=== PATIENT | female | born 1990 | race Caucasian/White ===

== ENCOUNTER 2021-12-15 22:18 | Emergency (ER) | payer MEDICAID ==
[~2021-12-15] VITALS: Ht 157.5 cm; Wt 59.0 kg
[2021-12-15] MEDS ORDERED: LORAZEPAM 1MG TABLET PO ONE (22:45)
[2021-12-15 23:25] VITALS: BP 121/69
[2021-12-15] MEDS ORDERED: LORA-249 MT (23:27)
== END 2021-12-15 23:30 | disposition home or self-care (01) ==
LOC: ER 22:18
DX: F41.9 Anxiety disorder, unspecified (principal); F32.A Depression, unspecified; G47.00 Insomnia, unspecified; J45.909 Unspecified asthma, uncomplicated
CPT/HCPCS: 99283

== ENCOUNTER 2022-02-20 21:25 | Emergency (ER) | payer MEDICAID ==
[~2022-02-20 21:25] MED LIST: LORA-249 MT
== END 2022-02-20 21:56 | disposition left against medical advice (07) ==
LOC: ER 21:25
DX: Z53.21 Procedure and treatment not carried out due to patient leaving prior to being seen by health care provider (principal)